=== PATIENT | female | born 1980 | race Caucasian/White ===

== ENCOUNTER → 2018-06-15 | Outpatient (CLI) | payer OTHER | END | disposition home or self-care (01) | LOC: U/S 16:52 | DX: O36.71X0 Maternal care for viable fetus in abdominal pregnancy, first trimester, not applicable or unspecified (principal); O09.511 Supervision of elderly primigravida, first trimester; O30.001 Twin pregnancy, unspecified number of placenta and unspecified number of amniotic sacs, first trimester; Z3A.08 8 weeks gestation of pregnancy | CPT/HCPCS: 76801 ==

== ENCOUNTER 2018-12-15 10:02 | Inpatient (IN) | payer OTHER ==
[2018-12-15] MEDS: LACTATED RINGER'S 1,000 ML IV ×2 (12:57→21:04)
[2018-12-15] MEDS: MAGNESIUM SULFATE 4 GM/100 ML 100 ML IVPB (20:16)
[2018-12-15] MEDS: MAGNESIUM SULFATE 20 GM/500 ML 500 ML IV (20:45)
[2018-12-15] MEDS: ONDANSETRON 4 MG INJ IV (21:01)
[2018-12-15] MEDS: BETAMET NA PHOS/AC(6 MG/ML) 2 ML INJ SYG IM (21:47)
[2018-12-16 04:13] LABS: MAGNESIUM 4.9 mg/dl (1.7-2.5)
[2018-12-16] MEDS: MAGNESIUM SULFATE 20 GM/500 ML 500 ML IV ×2 (06:07→16:19)
[2018-12-16] MEDS: FERROUS SULFATE (EC) 325 MG TAB PO (08:54)
[2018-12-16] MEDS: PRENATAL VITAMIN PO (08:54)
[2018-12-16 09:47] LABS: MAGNESIUM 5.2 mg/dl (1.7-2.5)
[2018-12-16] MEDS: LACTATED RINGER'S 1,000 ML IV ×2 (10:33→23:44)
[2018-12-16 12:48] LABS: MAGNESIUM 5.2 mg/dl (1.7-2.5)
[2018-12-16] MEDS: ACETAMINOPHEN 325 MG TAB PO (16:45)
[2018-12-16 19:13] LABS: MAGNESIUM 5.4 mg/dl (1.7-2.5)
[2018-12-16] MEDS: BETAMET NA PHOS/AC(6 MG/ML) 2 ML INJ SYG IM (21:53)
[2018-12-16] MEDS: NIFEdipine 10 MG CAP PO (21:54)
[2018-12-17] MEDS: NIFEdipine 10 MG CAP PO ×3 (04:26→17:49)
[2018-12-17] MEDS: PRENATAL VITAMIN PO (08:28)
[2018-12-17] MEDS: FERROUS SULFATE (EC) 325 MG TAB PO (08:28)
== END 2018-12-17 19:40 | disposition home or self-care (01) | DRG 831 ==
LOC: OBT 10:02 → L-D 10:02 → OBT 11:47 → PP1 11:37
PROVIDERS: Obstetrics & Gynecology
DX: O36.8330 Maternal care for abnormalities of the fetal heart rate or rhythm, third trimester, not applicable or unspecified (principal); O60.03 Preterm labor without delivery, third trimester; Z3A.34 34 weeks gestation of pregnancy; O30.033 Twin pregnancy, monochorionic/diamniotic, third trimester; O34.219 Maternal care for unspecified type scar from previous cesarean delivery
CPT/HCPCS: 76818; 83735

== ENCOUNTER 2018-12-24 20:34 | Inpatient (IN) | payer OTHER ==
[2018-12-24] MEDS: LACTATED RINGER'S 1,000 ML IV ×2 (21:35→22:09)
[2018-12-24] MEDS: TERBUTALINE 1 MG/ML INJ SC (21:36)
[2018-12-24 22:03] LABS: ADD MAN DIFF? NO
[2018-12-24 22:05] LABS: BASOPHILS % 0.5 % (0.0-2.0); EOSINOPHILS # 0.2 10^3/ul (0.0-0.5); EOSINOPHILS % 1.7 % (0.0-7.0); HEMOGLOBIN 13.3 g/dl (12.0-16.0); LYMPHOCYTES # 1.8 10^3/ul (0.8-2.9); LYMPHOCYTES % 20.4 % (15.0-51.0); MEAN CORPUSCULAR HEMOGLOBIN 28.9 pg (29.0-33.0); MEAN CORPUSCULAR HGB CONC 33.3 g/dl (32.0-37.0); MEAN CORPUSCULAR VOLUME 86.8 fl (82.0-101.0); MONOCYTE # 0.8 10^3/ul (0.3-0.9); NEUTROPHIL # 5.9 10^3/ul (1.6-7.5); PLATELET COUNT 273 10^3/UL (140-415); RED BLOOD COUNT 4.61 10^6/ul (4.20-5.40); RED CELL DISTRIBUTION WIDTH 13.8 % (11.5-14.5)
[2018-12-24 22:05] LABS: WHITE BLOOD COUNT 8.9 10^3/ul (4.8-10.8)
[2018-12-24 22:06] LABS: ADD UMIC NO; UR ASCORBIC ACID NEGATIVE (NEGATIVE); UR BILIRUBIN (Dip) NEGATIVE (NEGATIVE); UR BLOOD (Dip) NEGATIVE (NEGATIVE); UR CLARITY CLEAR (CLEAR); UR COLOR YELLOW (YELLOW); UR GLUCOSE (Dip) NEGATIVE (NEGATIVE); UR KETONES (Dip) NEGATIVE (NEGATIVE); UR LEUKOCYTE ESTERASE (Dip) NEGATIVE Leu/ul (NEGATIVE); UR NITRITE (Dip) NEGATIVE (NEGATIVE); UR SPECIFIC GRAVITY (Dip) 1.004 (1.003-1.030); UR TOTAL PROTEIN (Dip) NEGATIVE (NEGATIVE); UR UROBILINOGEN (Dip) NEGATIVE (NEGATIVE)
[2018-12-25] MEDS: NIFEdipine 10 MG CAP PO ×3 (00:06→11:53)
[2018-12-25 00:26] LABS: INR 0.99; PROTIME 13.2 Sec (11.9-14.9)
[2018-12-25] MEDS: LACTATED RINGER'S 1,000 ML IV ×4 (00:55→23:12)
[2018-12-25] MEDS ORDERED: METOCLOPRAMIDE 10 MG INJ (07:00)
[2018-12-25] MEDS: FERROUS SULFATE (EC) 325 MG TAB PO (08:36)
[2018-12-25] MEDS: PRENATAL VITAMIN PO (08:36)
[2018-12-25] MEDS ORDERED: CEFAZOLIN 2 GM/50 ML (PMX) 50 ML IVPB (17:00)
[2018-12-25] MEDS ORDERED: OXYTOCIN 30 UNITS/LR 500 ML IV ×2 (17:00→22:00)
[2018-12-25] MEDS ORDERED: MISOPROSTOL 200 MCG TAB PR ×2 (17:00→22:00)
[2018-12-25] MEDS ORDERED: CARBOPROST 250 MCG INJ IM ×2 (17:00→22:00)
[2018-12-25] MEDS ORDERED: METHYLERGONOVINE 0.2 MG INJ IM ×2 (17:00→22:00)
[2018-12-25] MEDS ORDERED: morphine SULFATE/PF (10 MG/10 ML) INJ (17:07)
[2018-12-25] MEDS ORDERED: LACTATED RINGER'S 1,000 ML IV (17:15)
[2018-12-25] MEDS ORDERED: NALBUPHINE HCL (10 MG/1 ML) INJ IV (17:30)
[2018-12-25] MEDS ORDERED: ONDANSETRON 4 MG INJ IV (17:30)
[2018-12-25] MEDS ORDERED: ZOLPIDEM 5 MG TAB PO (17:30)
[2018-12-25] MEDS ORDERED: NALOXONE (0.4 MG/ML) INJ IV (17:30)
[2018-12-25] MEDS ORDERED: DIPHENHYDRAMINE 50 MG INJ IV (17:30)
[2018-12-25] MEDS ORDERED: HYDROmorphONE 0.5 MG/0.5 ML SYG IV ×2 (17:30)
[2018-12-25] MEDS ORDERED: MIDAZOLAM 1 MG/ML 2 ML INJ IV (17:30)
[2018-12-25] MEDS ORDERED: CITRIC ACID/NA CITRATE 30 ML CUP PO (17:30)
[2018-12-25] MEDS ORDERED: ONDANSETRON 4 MG INJ (17:34)
[2018-12-25] MEDS ORDERED: OXYTOCIN 10 UNIT INJ ×2 (17:54→18:29)
[2018-12-25] MEDS ORDERED: MIDAZOLAM 1 MG/ML 2 ML INJ (17:55)
[2018-12-25] MEDS ORDERED: CEFAZOLIN 1 GM INJ (18:28)
[2018-12-25] MEDS ORDERED: DIPHENHYDRAMINE 50 MG INJ (18:30)
[2018-12-25] MEDS: OXYTOCIN 30 UNITS/LR 500 ML IV (18:44)
[2018-12-25] MEDS: MEPERIDINE 25 MG INJ IV (19:07)
[2018-12-25] MEDS: DIPHENHYDRAMINE 50 MG INJ IV (19:28)
[2018-12-25] MEDS: AZITHROMYCIN 500MG/NS (PMX) 250 ML IVPB (19:32)
[2018-12-25] MEDS: KETOROLAC 30 MG INJ IV (20:56)
[2018-12-25] MEDS ORDERED: NA PHOSPHATE/BIPHOS 133 ML ENEMA PR (22:00)
[2018-12-25] MEDS ORDERED: IBUPROFEN 800 MG TAB PO (22:00)
[2018-12-25] MEDS ORDERED: OXYCODONE/ACETAMINOPHEN (5/325) TAB PO (22:00)
[2018-12-25 22:36] LABS: RAPID PLASMA REAGIN NONREACTIVE (NR)
[2018-12-25] MEDS: CEFAZOLIN 2 GM/50 ML (PMX) 50 ML IVPB (23:11)
[2018-12-26] MEDS: CEFAZOLIN 2 GM/50 ML (PMX) 50 ML IVPB ×2 (05:20→16:20)
[2018-12-26] MEDS: CLINDAMYCIN 300 MG CAP PO ×5 (05:20→23:47)
[2018-12-26 06:33] LABS: ADD MAN DIFF? NO
[2018-12-26 06:43] LABS: BASOPHILS % 0.3 % (0.0-2.0); EOSINOPHILS # 0.1 10^3/ul (0.0-0.5); EOSINOPHILS % 0.7 % (0.0-7.0); HEMATOCRIT 35.5 % (37.0-47.0); HEMOGLOBIN 11.9 g/dl (12.0-16.0); LYMPHOCYTES % 16.9 % (15.0-51.0); MEAN CORPUSCULAR HEMOGLOBIN 29.3 pg (29.0-33.0); MEAN CORPUSCULAR HGB CONC 33.5 g/dl (32.0-37.0); MEAN CORPUSCULAR VOLUME 87.4 fl (82.0-101.0); MEAN PLATELET VOLUME 10.1 fl (7.4-10.4); MONOCYTE # 1.1 10^3/ul (0.3-0.9); MONOCYTES % 9.4 % (0.0-11.0); NEUTROPHIL # 8.3 10^3/ul (1.6-7.5); NEUTROPHILS % 71.8 % (39.0-77.0); PLATELET COUNT 238 10^3/UL (140-415); RED BLOOD COUNT 4.06 10^6/ul (4.20-5.40); RED CELL DISTRIBUTION WIDTH 13.7 % (11.5-14.5)
[2018-12-26 06:43] LABS: WHITE BLOOD COUNT 11.6 10^3/ul (4.8-10.8)
[2018-12-26] MEDS: SENNA/DOCUSATE NA (8.6MG/50MG) TAB PO ×2 (09:20→22:17)
[2018-12-26] MEDS: LANOLIN HPA 1 PKT TOP (09:20)
[2018-12-26] MEDS: LACTATED RINGER'S 1,000 ML IV ×2 (09:20→14:26)
[2018-12-26] MEDS: KETOROLAC 30 MG INJ IV (11:28)
[2018-12-26] MEDS: BISACODYL 10 MG SUPP PR (16:20)
[2018-12-26] MEDS: IBUPROFEN 800 MG TAB PO ×2 (20:00→22:17)
[2018-12-26] MEDS: HYDROCODONE/APAP (5/325) TAB PO (23:48)
[2018-12-27] MEDS: IBUPROFEN 800 MG TAB PO ×3 (05:50→21:57)
[2018-12-27] MEDS: CLINDAMYCIN 300 MG CAP PO ×4 (05:50→23:35)
[2018-12-27 08:10] LABS: ADD MAN DIFF? NO
[2018-12-27 08:15] LABS: BASOPHILS % 0.3 % (0.0-2.0); EOSINOPHILS # 0.2 10^3/ul (0.0-0.5); EOSINOPHILS % 1.8 % (0.0-7.0); HEMATOCRIT 36.6 % (37.0-47.0); HEMOGLOBIN 12.3 g/dl (12.0-16.0); LYMPHOCYTES # 2.1 10^3/ul (0.8-2.9); LYMPHOCYTES % 16.2 % (15.0-51.0); MEAN CORPUSCULAR HEMOGLOBIN 29.1 pg (29.0-33.0); MEAN CORPUSCULAR HGB CONC 33.6 g/dl (32.0-37.0); MEAN CORPUSCULAR VOLUME 86.5 fl (82.0-101.0); MEAN PLATELET VOLUME 9.9 fl (7.4-10.4); MONOCYTE # 1.2 10^3/ul (0.3-0.9); MONOCYTES % 8.8 % (0.0-11.0); NEUTROPHIL # 9.5 10^3/ul (1.6-7.5); NEUTROPHILS % 71.7 % (39.0-77.0); PLATELET COUNT 276 10^3/UL (140-415); RED BLOOD COUNT 4.23 10^6/ul (4.20-5.40); RED CELL DISTRIBUTION WIDTH 13.8 % (11.5-14.5)
[2018-12-27 08:15] LABS: WHITE BLOOD COUNT 13.3 10^3/ul (4.8-10.8)
[2018-12-27] MEDS: SENNA/DOCUSATE NA (8.6MG/50MG) TAB PO ×2 (08:15→21:57)
[2018-12-27] MEDS ORDERED: ACETAMINOPHEN 325 MG TAB PO (17:30)
[2018-12-28] MEDS: IBUPROFEN 800 MG TAB PO (05:54)
[2018-12-28] MEDS: CLINDAMYCIN 300 MG CAP PO ×2 (05:54→12:00)
[2018-12-28] MEDS: MEASLES,MUMPS,RUBELLA VACCINE INJ SC* (08:18)
[2018-12-28] MEDS: SENNA/DOCUSATE NA (8.6MG/50MG) TAB PO (08:18)
[2018-12-28] MEDS: DIPHTH/TET/ACEL PERTUSS (ADULT) 0.5 ML VIAL IM* (09:00)
== END 2018-12-28 14:20 | disposition home or self-care (01) | DRG 786 ==
LOC: OBT 20:34 → L-D 23:35 → OBT 23:35 → L-D 12-25 17:20 → PP1 12-25 21:10
PROVIDERS: Obstetrics & Gynecology
PROC: 10D00Z1 Extraction of Products of Conception, Low, Open Approach (ICD-10-PCS; principal; 2018-12-25)
DX: O65.5 Obstructed labor due to abnormality of maternal pelvic organs (principal); O60.12X2 Preterm labor second trimester with preterm delivery second trimester, fetus 2; O34.211 Maternal care for low transverse scar from previous cesarean delivery; O30.032 Twin pregnancy, monochorionic/diamniotic, second trimester; O32.8XX2 Maternal care for other malpresentation of fetus, fetus 2; P03.89 Newborn affected by other specified complications of labor and delivery; Z3A.36 36 weeks gestation of pregnancy; Z37.2 Twins, both liveborn
CPT/HCPCS: 36415; 76818; 81003; 85025; 85610; 85730; 86592; 86850; 86900; 86901; 87086; 88307; 96360; 96361; 96372; 99464